=== PATIENT | male | born 1965 | race Caucasian/White ===

== ENCOUNTER 2025-02-11 10:40 | Day surgery (SDC) | payer OTHER ==
[2025-02-11 11:49] LABS: Calcium 9.2 mg/dL (8.4-10.2); Carbon Dioxide 26.0 mmol/L (22-30); Creatinine 1 1.01 mg/dL (0.66-1.25); EST GLOMERULAR FILTRATION RATE 85.1 ML/MIN; Glucose 122.0 mg/dL (74-106); Potassium 4.2 mmol/L (3.5-5.1)
[2025-02-11] MEDS ORDERED: propofoL IV ONE ×3 (13:30→13:48)
[2025-02-11 14:36] VITALS: RESP 18; TEMP 98
[2025-02-11 14:52] VITALS: BP 120/63; PULSE 66; O2SAT 98
[2025-02-11 15:46] LABS: 027 TOX PROD PRESUMPTIVE NEGATIVE (NEGATIVE); TOXIGENIC C. DIFF ORG NEGATIVE (NEGATIVE)
--- NOTE | 2025-02-12 09:33 | OP ---
SURGERY DATE/TIME: 02/11/2025 [id number] PREOPERATIVE DIAGNOSIS: Anemia, referral from Dr. Ball. POSTOPERATIVE DIAGNOSIS: Anemia, referral from Dr. Ball. PROCEDURE: EGD and colonoscopy. SURGEON: Harman Anders M.D. INDICATION FOR PROCEDURE: Patient is a robust gentleman, presents for upper and lower endoscopic examination. DESCRIPTION OF PROCEDURE: Taken to endoscopy, left lateral decubitus position. Scope introduced. Pharyngoesophageal junction normal. Esophagus normal down to EG junction grade 2/4 GERD. No hiatal hernia. Fundus, body, antrum satisfactory. Pylorus satisfactory. Duodenal bulb satisfactory. Scope was looped on itself. No hiatal hernia. No blood on the upper examination. Vocal cords were normal on withdrawal. Lower: Anal digital examination was satisfactory. Scope introduced. A fairly long colon but not really redundant and a normal diameter and was actually a very nice colon. Scope was advanced to the base of the cecum. Pictures of the ileocecal valve, base of cecum, cecum, ascending, hepatic, transverse, splenic, descending. In the sigmoid there was medium-sized diverticula, nothing massive and nothing extensive rectum, anus. Findings discussed with the in the waiting room. He had little heartburn, had a little diverticulosis but in general looked very good today. Anticipate followup 10 years on C scope.
== END 2025-02-11 15:05 | disposition home or self-care (01) ==
LOC: SDC 10:40
PROVIDERS: ATTEND Surgery
DX: K21.9 Gastro-esophageal reflux disease without esophagitis (principal); D64.9 Anemia, unspecified; I48.91 Unspecified atrial fibrillation; I50.9 Heart failure, unspecified; Z79.899 Other long term (current) drug therapy; K57.30 Diverticulosis of large intestine without perforation or abscess without bleeding